=== PATIENT | female | born 2000 | race Caucasian/White ===

== ENCOUNTER → 2019-10-13 | Outpatient (CLI) | payer OTHER ==
[~2019-10-13] MED LIST: HOLD METFORMIN - RECEIVED CONTRAST 20 ML VIAL IV SCH; IOHEXOL 350 MG/ML 100 ML (OMNIPAQUE 350) VIAL IV ONE; NS 100 ML (IVPB) BAG IV ONE
--- NOTE | 2019-10-13 14:33 | Diagnostic Imaging Report ---
PROCEDURE: CT abdomen with and without contrast. TECHNIQUE: Multiple contiguous axial CT images of the abdomen were obtained prior to and after intravenous administration of iodinated contrast. Auto Exposure Controls were utilized during the CT exam to meet ALARA standards for radiation dose reduction. INDICATION: Elevated DHEA. COMPARISON: No priors. FINDINGS: The bilateral adrenal glands are normal in density, enhancement, morphology, and volume. There is no evidence for hyperplasia or mass. There is no ascites. Liver, gallbladder, spleen, and pancreas are negative. The unobstructed kidneys are normal. There is no mesenteric or retroperitoneal lymphadenopathy. IMPRESSION: Normal CT abdomen, in particular normal nonfocal appearance of the bilateral adrenal glands. Dictated by: Dictated on workstation # [id number]
== END ==
LOC: RAD 13:04
PROVIDERS: ATTEND Family Medicine
DX: E27.8 Other specified disorders of adrenal gland (principal)
CPT/HCPCS: 74170

== ENCOUNTER → 2020-02-22 | Outpatient (CLI) | payer OTHER ==
--- NOTE | 2020-02-22 08:55 | Diagnostic Imaging Report ---
PROCEDURE: MR imaging of the brain without contrast. TECHNIQUE: Multiplanar, multisequence MR imaging of the brain was performed without contrast. INDICATION: Blurred vision and headaches. Procedure is significantly compromised due to absence of intravenous contrast. The study was ordered without contrast. This can limit visualization of small pituitary microadenomas. Sella is unremarkable. Pituitary gland has a normal size. No definite sellar or suprasellar mass is identified. Corpus callosum is unremarkable. The optic tracts and chiasm are unremarkable. Ventricles and sulci are within normal limits. There is no midline shift. No acute intra-axial or extra-axial hemorrhage is detected. There is no diffusion restriction. The normal expected flow-voids within the carotid siphons are seen. IMPRESSION: Unremarkable noncontrast MRI of the brain. Note is made that due to absence of intravenous contrast, this does significantly limit visualization of a possible pituitary microadenoma. If the patient is able and there is concern for microadenoma, patient could return and postcontrast imaging through the brain and pituitary could be performed utilizing pituitary protocol. Dictated by: Dictated on workstation # [id number]
== END ==
LOC: RAD 07:50
PROVIDERS: ATTEND Family Medicine
DX: G43.109 Migraine with aura, not intractable, without status migrainosus (principal); E27.8 Other specified disorders of adrenal gland; H53.453 Other localized visual field defect, bilateral; N92.6 Irregular menstruation, unspecified
CPT/HCPCS: 70551

== ENCOUNTER → 2020-03-04 | Outpatient (CLI) | payer OTHER ==
[~2020-03-04] MED LIST changes: +GADOBUTROL 10 MMOL/10 ML (GADAVIST) VIAL IV ONE; -HOLD METFORMIN - RECEIVED CONTRAST 20 ML VIAL IV SCH; -IOHEXOL 350 MG/ML 100 ML (OMNIPAQUE 350) VIAL IV ONE; -NS 100 ML (IVPB) BAG IV ONE
--- NOTE | 2020-03-04 09:42 | Diagnostic Imaging Report ---
INDICATION: Blurred vision and double vision as well as migraine headaches. TECHNIQUE: Multiplanar post contrast T1-weighted imaging through the brain and pituitary was performed. Pituitary protocol was utilized. COMPARISON: Correlation is made with a noncontrast MRI brain study performed on 02/22/2020. FINDINGS: The ventricular size and sulcal pattern are normal. There is no midline shift. No abnormal enhancement following contrast administration is identified. The corpus callosum is unremarkable. Dynamic imaging through the sella turcica was performed. The infundibulum is midline. The pituitary superior margins are concave. No suspicious hypointense lesion within the pituitary is identified to suggest microadenoma. IMPRESSION: Unremarkable MRI of the brain and pituitary gland. Dictated by: Dictated on workstation # [id number]
== END ==
LOC: RAD 08:43
PROVIDERS: ATTEND Family Medicine
DX: G43.109 Migraine with aura, not intractable, without status migrainosus (principal); E27.8 Other specified disorders of adrenal gland
CPT/HCPCS: 70552